=== PATIENT | male | born 1960 | race Caucasian/White ===

== ENCOUNTER → 2016-10-12 | Day surgery (SDC) | payer OTHER ==
[~2016-10-12] MED LIST: AEROSPAN8.9 GM INH; ALLOPURINOL100 MG PO; AMITRIPTYLINE100 MG PO; CLONAZEPAM0.5 MG PO; COLCRYS0.6 MG PO; FLEXERIL 10 MG10 MG PO; FLUNISOLIDE25 ML; HYDROCHLOROTH12.5 MG PO; HYDROCODON-ACE1 EAC6 PO; IBUPROFEN800 MG PO; KEFLEX500 MG PO; LEXAPRO20 MG PO; LIPITOR TAB 1010 MG PO; LITHIUM CARBON300 M1 PO; LITHIUM CARBON600 MG PO; LOSARTAN POTASS25 MG PO; MIRALAX17 GM PO; NEURONTIN 400400 MG PO; PHENERGAN 25 MG25 M1 PO; POLYOX WSR-3011 GM MC; PRIMIDONE50 MG PO; ST. JOSEPH ASPI81 MG PO; SUDAFED 12 HOU120 MG PO; TRAMADOL HCL E200 MG PO; TRAMADOL HCL50 MG PO; VITAMIN B-121000 MC3 SL; VITAMIN B12-FO1 EACH PO; VITAMIN D350000 UNIT PO
== END | disposition home or self-care (01) ==
LOC: OR 07:30
PROVIDERS: Internal Medicine Gastroenterology
PROC: 0DB68ZX Excision of Stomach, Via Natural or Artificial Opening Endoscopic, Diagnostic (ICD-10-PCS; 2016-10-12)
PROC: 0DB38ZX Excision of Lower Esophagus, Via Natural or Artificial Opening Endoscopic, Diagnostic (ICD-10-PCS; 2016-10-12)
PROC: 0DB48ZX Excision of Esophagogastric Junction, Via Natural or Artificial Opening Endoscopic, Diagnostic (ICD-10-PCS; principal; 2016-10-12 12:15)
DX: K29.70 Gastritis, unspecified, without bleeding (principal); D64.9 Anemia, unspecified; F41.9 Anxiety disorder, unspecified; G89.29 Other chronic pain; M54.5 Low back pain; M10.9 Gout, unspecified; E78.5 Hyperlipidemia, unspecified; I10 Essential (primary) hypertension; G25.0 Essential tremor; F32.9 Major depressive disorder, single episode, unspecified; E65 Localized adiposity; Z79.899 Other long term (current) drug therapy; Z90.89 Acquired absence of other organs
CPT/HCPCS: J2250; J3010; J7030

== ENCOUNTER 2020-06-03 13:51 | Emergency (ER) | payer SELFPAY | END 2020-06-03 16:40 | disposition home or self-care (01) | LOC: ER1 13:51 | DX: S80.11XA Contusion of right lower leg, initial encounter (principal); I10 Essential (primary) hypertension; F41.9 Anxiety disorder, unspecified; F32.9 Major depressive disorder, single episode, unspecified; E78.5 Hyperlipidemia, unspecified; Z79.899 Other long term (current) drug therapy; Z87.891 Personal history of nicotine dependence; W01.198A Fall on same level from slipping, tripping and stumbling with subsequent striking against other object, initial encounter; Y92.89 Other specified places as the place of occurrence of the external cause | CPT/HCPCS: 73590; 99283 ==

== ENCOUNTER 2021-01-17 01:38 | Emergency (ER) | payer MEDICARE, OTHER | END 2021-01-17 05:33 | disposition home or self-care (01) | LOC: ER1 01:38 | DX: S61.512A Laceration without foreign body of left wrist, initial encounter (principal); S60.222A Contusion of left hand, initial encounter; E78.5 Hyperlipidemia, unspecified; I10 Essential (primary) hypertension; W22.8XXA Striking against or struck by other objects, initial encounter | CPT/HCPCS: 73130; 99283 ==

== ENCOUNTER → 2021-05-11 | Outpatient (CLI) | payer MEDICARE, OTHER | LOC: RAD 16:18 | DX: M25.572 Pain in left ankle and joints of left foot (principal); M79.672 Pain in left foot; M79.662 Pain in left lower leg; R53.82 Chronic fatigue, unspecified; R60.9 Edema, unspecified; W19.XXXA Unspecified fall, initial encounter; M79.89 Other specified soft tissue disorders | CPT/HCPCS: 73590; 73610; 73630 ==